=== PATIENT | female | born 1950 | race Hispanic/Latino ===

== ENCOUNTER → 2024-08-21 | Outpatient (CLI) | payer MEDICARE, OTHER ==
[~2024-08-21] MED LIST: FAMO20TA8 PO; GAS X PO; LOVA20TA3 PO
== END | disposition home or self-care (01) ==
LOC: RAH 13:14
PROVIDERS: ATTEND Internal Medicine Critical Care Medicine
DX: Z78.0 Asymptomatic menopausal state (principal)
CPT/HCPCS: 77080